=== PATIENT | female | born 1955 | race Caucasian/White ===

== ENCOUNTER 2018-04-19 18:44 | Emergency (ER) | payer MEDICAID ==
[~2018-04-19] VITALS: Ht 157.5 cm; Wt 65.6 kg
[~2018-04-19 18:44] MED LIST: AMLO5TAB7 PO; ASPI325T17 PO; CEFD300C37 PO; DILT240C2 PO; FURO40TA6 PO; LISI-170 PO; LISI40TA PO; MAGN400T36 PO; OLAN5TAB9 PO; PANT40TA5 PO; POTA20PA25 PO; RIVA20TA PO
[2018-04-19 18:58] VITALS: BP 117/82
[2018-04-19] MEDS ORDERED: LIDOCAINE-MPF 1%, 5ML ONE (19:59)
[2018-04-19] MEDS ORDERED: LIDOCAINE 1%, 10ML INFIL ONE (20:00)
== END 2018-04-19 20:30 | disposition home or self-care (01) ==
LOC: ED 20:00
DX: L03.311 Cellulitis of abdominal wall (principal); L02.211 Cutaneous abscess of abdominal wall; I50.9 Heart failure, unspecified; I11.0 Hypertensive heart disease with heart failure
CPT/HCPCS: 10060; 99283